=== PATIENT | female | born 1975 | race Caucasian/White ===

== ENCOUNTER 2021-10-08 12:58 | Emergency (ER) | payer OTHER, SELFPAY ==
[2021-10-08 13:08] VITALS: BP 155/104; PULSE 104; RESP 18; TEMP 37.2; O2SAT 97; BMI 25.4
--- NOTE | 2021-10-08 13:25 | ED_ITS ---
HPI - Fall General: Chief Complaint: Fall Stated Complaint: Ribs need to be checked Time Seen by Provider: 10/08/21 13:19 Source: patient Mode of arrival: ambulatory Limitations: no limitations History of Present Illness: HPI Narrative: Patient is a 46-year-old female presents to ED today for evaluation following a fall that occurred 2 days ago on . Patient states she was getting into the back of a truck when she accidentally slipped and fell. She states she twisted her right knee and landed onto her right ribs. Patient states she has been ambulatory but feels like her knee kassidy when she ambulates and she has noticed some swelling behind the knee. Patient denies striking her head or LOC. She does not complain of neck or back pain. She has not noticed any difficulty breathing, shortness of breath, hemoptysis, or fevers. She does have pain to her right ribs with deep inhalation. MD complaint: fall Onset (ago): hour(s) Fall from: standing Fall witnessed: yes, by bystander Place fall occurred: other (outside) Loss of consciousness: None Prolonged down time: no Symptoms prior to fall: none Context: tripped/slipped Location of injury: chest Location of injury - extremities: Right: knee Associated symptoms-after fall: Reports chest pain (R rib pain); Denies abdominal pain, difficulty walking, headache(s), lightheadedness or neck pain Review of Systems Const: Denies: fever(s), chills, body aches, fatigue or malaise Eyes: Denies: change in vision Card: Reports: chest pain (R rib pain); Denies: palpitations, irregular heart rhythm, edema, swelling of feet/ankles, lightheadedness, syncope, pre-syncope, dyspnea on exertion, orthopnea, leg pain with exertion or acrocyanosis Resp: Denies: dyspnea, productive cough, non-productive cough or chest congestion GI: Denies: abdominal pain Musc: Reports: joint pain (R knee) and joint swelling (swelling behind R knee); Denies: neck pain, back pain, extremity pain, extremity swelling, joint redness, joint warmth or limited range of motion Neuro: Denies: headache(s), numbness in extremities, weakness in extremities, sensory changes or difficulty walking Physical Exam Const: COMMON NORMALS: no acute distress, average body habitus, patient oriented x3, no limitations, healthy appearing, alert and well nourished GENERAL APPEARANCE: cooperative ORIENTATION/CONSCIOUSNESS: Yes awake, Yes oriented to person, Yes oriented to place and Yes oriented to time HENMT: COMMON NORMALS: normocephalic, atraumatic and Normal external nose present HEAD & SCALP: normal to inspection, normocephalic and atraumatic FACE & SINUS: sinuses nontender and other (see below) NOSE: Normal external nose present MOUTH: other (no intraoral injuries noted) OTHER: pt has some scant ecchymosis to bilateral inferior periorbital regions without much bony tenderness; full painless EOMs; no gaze palsy Eye: COMMON NORMALS: Equal, round and reactive pupils present, EOMs intact bilaterally and conjunctivae normal GENERAL EYE: normal light reflex VISUAL ACUITY: Yes acuity normal ALIGNMENT: Yes alignment normal CONJUNCTIVA: Yes conjunctivae normal PUPIL: Yes Equal, round and reactive pup ils present DIRECT OPHTHALMOSCOPY: Yes normal light reflex Neck/C-Spine: COMMON NORMALS: full ROM CERVICAL SPINE: Yes cervical ROM normal, No pain with cervical ROM, No Cervical spine tenderness and No Paracervical muscle tenderness Chest: OTHER: pt has a mild abrasion and tenderness overlying R posterolateral lower ribs; no crepitus noted; breath sounds present in all shay Resp: COMMON NORMALS: normal respiratory effort and clear to auscultation bilaterally AUSCULTATION: clear to auscultation bilaterally Cardio: COMMON NORMALS: regular rate and regular rhythm RATE: regular rate RHYTHM: regular rhythm GI: COMMON NORMALS: Normal to inspection, nondistended, normoactive bowel sounds present, Soft to palpation, non-tender, No hepatosplenomegaly present and no masses INSPECTION: Yes normal to inspection PALPATION: Yes Soft to palpation and Yes No hepatosplenomegaly present Back/Pelvis: COMMON NORMALS: thoracic and lumbar spine normal to inspection, no thoracic nor lumbar tenderness and thoraco-lumbar ROM normal Extremity: COMMON NORMALS: normal to inspection and full ROM GENERAL: Yes normal exam except as noted Neuro: ALEXA COMA SCALE: document GCS findings [place] coma scale eye opening: Spontaneous [place] coma scale verbal response: Orientated [place] coma scale motor response: Obey commands [place] coma scale total score: 15 COMMON NORMALS: patient oriented x3, CN's II-XII intact bilaterally, moves all extremities, no focal motor deficits, no sensory deficits noted and gait normal SENSORIUM/ORIENTATION: Yes alert, Yes oriented to person, Yes oriented to place and Yes oriented to time Skin: NARRATIVE SKIN EXAM: normal skin exam except where documented elsewhere Course Vital Signs: Vital signs: Vital Signs Temperature 98.9 F 10/08/21 13:08 Pulse Rate 104 H 10/08/21 13:08 Respiratory Rate 18 10/08/21 13:08 Blood Pressure 155/104 10/08/21 13:08 Pulse Oximetry 97 10/08/21 13:08 MDM - Fall MDM Narrative: Medical decision making narrative: XRs negative. She has a large probable hemorrhagic Ruano's Cyst to R knee that we will refer her to orthopedics for. She does not have a PCP. Recommend compression/ice/NSAIDS. Imaging Data^: US R LE venous: My impression: Per Claudine Mireles US tech-No DVT seen in any vessel examined. No superficial thrombus seen in any vessel examined. There is a large debris-filled cystic structure right medial popliteal fossa measuring 7 x 3 x 6 cm. Debris is mobile. XR R knee: My impression: NAD XR R ribs/CXR: My impression: NAD Discharge Plan Discharge Patient Disposition: Home Clinical Impression: Contusion of rib on right side Qualifiers: Encounter type: initial encounter Qualified Code(s): S20.211A - Contusion of right front wall of thorax, initial encounter Ruano's cyst Qualifiers: Laterality: right Qualified Code(s): M71.21 - Synovial cyst of popliteal space [Ruano], right knee Condition: Stable Prescriptions: New ibuprofen 800 mg tablet 800 mg PO Q8H PRN (Reason: pain) Qty: 20 RF: 0 Discharge Orders: Discharge ED (Routine); Ordered 10/08/21 Ordered By: Katerin Ricardo Patient Instructions: Ruano Cyst (ED) Coding Level of Care Code ED Uke Operator for Jilliang Fwd Exam Comprehensive
--- NOTE | 2021-10-08 13:42 | XRR_ITS ---
PROCEDURE INFORMATION: Exam: XR Right Knee Exam date and time: 10/08/2021 1:42 PM Age: 46 years old Clinical indication: Fall with blunt right knee trauma. TECHNIQUE: Imaging protocol: XR Right knee. Views: 3 views. COMPARISON: No relevant prior studies available. FINDINGS: Bones/joints: No fracture, dislocation or subluxation. No periosteal reaction or supsicious bone lesion. Small knee joint effusion. No chondrocalcinosis is seen. No significant osteoarthritis. Soft tissues: The extensor mechanism is intact. No significant soft tissue swelling. XR/XR knee RT 3V* [id number] IMPRESSION: 1. No acute fracture is seen. 2. Small knee joint effusion.
--- NOTE | 2021-10-08 13:42 | USCV_ITS ---
FabianGuzman ornelasie Age: 46 Gender: F : 1975 Exam Date: 10/08/2021 13:54 Ordering Phys: Katerin Ricardo Technologist: Claudine Mireles [place]am [place] [facility] [place]: PAIN IN MEDIAL POP FOSSA ON RT POST FALL HISTORY: Fall then pain rt pop fossa PROCEDURES: Venous duplex imaging was performed in only the right lower extremity. The following venous structures were evaluated: common femoral vein, profunda vein, proximal portion of the greater saphenous vein, superficial femoral vein, and the popliteal vein. In addition, the posterior tibial and peroneal trunk were evaluated. Serial compression, augmentation maneuvers, and spectral Doppler flow evaluation were performed. FINDINGS: No DVT seen in any vessel examined. No superficial thrombus seen in any vessel examined There is a large debris filled cystic structure rt medial pop fossa. 7 x 3 x 6 cms. Debris is mobile. CONCLUSIONS No evidence of DVT in the above-mentioned identifiable veins. Possible Ruano's cyst/hematoma in the right popliteal fossa, measuring 7 x 3 x 6 cm Clinical correlation is recommended. No similar previous studies are available for comparison Dr Marcela Christensen MD [facility] (Electronically Signed) Final Date: 08 October 2021 18:58 S
--- NOTE | 2021-10-08 13:43 | XRR_ITS ---
PROCEDURE INFORMATION: Exam: XR Right Ribs with PA Chest Exam date and time: 10/08/2021 1:43 PM Age: 46 years old Clinical indication: Injury or trauma; Fall; Rib area; Blunt trauma (contusions or hematomas) TECHNIQUE: Imaging protocol: XR Right ribs with PA chest. Views: 3 views COMPARISON: No relevant prior studies available. FINDINGS: Lungs: There is fullness of the right hilum that could reflect superimposed vascular structures, lymphadenopathy, mass or aneurysm. No pulmonary consolidation. Pleural spaces: No pleural effusion. No pneumothorax. Heart/Mediastinum: The cardiac silhouette is unremarkable. There are calcified mediastinal lymph nodes. No gross evidence of pneumomediastinum. Bones/joints: Possible subtle buckled fractures involving the anterior right 4th and 5th ribs. XR/XR ribs RT mn 3V w [id number] IMPRESSION: 1. There is fullness of the right hilum that could reflect superimposed vascular structures, lymphadenopathy, mass or aneurysm. Recommend CT chest to better characterize. 2. Possible subtle buckled fractures involving the anterior right 4th and 5th ribs.
--- NOTE | 2021-10-09 10:11 | DCPLANNER ---
seed corn production manager had message to schedule a follow up appointment for patient with ortho. seed corn production manager called the ortho clinic, spoke with Charlene, gave clinic patients information. seed corn production manager was told that patients information would be printed and reviewed. Clinic will call patient with appointment information.
--- NOTE | 2021-10-20 05:49 | DCPLANNER ---
Patient had a follow up appointment scheduled for 10.17.21 with Armaan PALOMINO at [facility] - patient did attend appointment.
== END 2021-10-08 14:52 | disposition home or self-care (01) ==
PROVIDERS: Emergency Provider Physician Assistant
DX: M71.21 Synovial cyst of popliteal space [Baker], right knee (principal); S20.211A Contusion of right front wall of thorax, initial encounter; W17.89XA Other fall from one level to another, initial encounter; M79.89 Other specified soft tissue disorders
CPT/HCPCS: 71101; 73562; 93971; 99282

== ENCOUNTER → 2021-10-17 14:39 | Outpatient (BNVA) | payer SELFPAY | PROVIDERS: Visit Provider Physician Assistant | DX: S89.91XA Unspecified injury of right lower leg, initial encounter (principal); X58.XXXA Exposure to other specified factors, initial encounter | CPT/HCPCS: 73560; 73565 ==